=== PATIENT | male | born 1955 | race Caucasian/White ===

== ENCOUNTER 2017-02-22 12:33 | Inpatient (IN) | payer OTHER ==
[2017-02-22] MEDS ORDERED: MORPHINE SULFATE 10 MG/ML INJ IV ONE ×3 (12:46→22:43)
[2017-02-22] MEDS ORDERED: ONDANSETRON HCL INJ/PF 4 MG/2 ML SDV IV ONE ×3 (12:46→19:42)
--- NOTE | 2017-02-22 12:50 | ER Document Report ---
ED Medical Screen (RME) - General Chief Complaint: Abdominal Pain Stated Complaint: ABDOMINAL PAIN Mode of Arrival: Ambulatory Information source: Patient Notes: Patient presents emergency department with severe abdominal pain. Reports it woke him up at 3:00. Reports episode of diarrhea but still having pain. Abdomen is tight. Patient reports he has not voided. Half cup of coffee at 0730. Patient almost passed out in pivot. I have greeted and performed a rapid initial assessment of this patient. A comprehensive ED assessment and evaluation of the patient, analysis of test results and completion of the medical decision making process will be conducted by additional ED providers. TRAVEL OUTSIDE OF THE [place] IN LAST 30 DAYS: No - Related Data Allergies/Adverse Reactions: No Known Allergies Allergy (Verified 02/22/17 12:46) Past Medical History - Social History Chew tobacco use (# tins/day): No Frequency of alcohol use: Occasional Drug Abuse: None - Past Medical History Cardiac Medical History: Reports: Hx Coronary Artery Disease, Hx Heart Attack - 2009, Hx Hypercholesterolemia, Hx Hypertension Pulmonary Medical History: Denies: Hx Tuberculosis Renal/ Medical History: Denies: Hx Peritoneal Dialysis GI Medical History: Reports: Hx Gastroesophageal Reflux Disease Past Surgical History: Reports: Hx Cardiac Catheterization - 2009, Hx Coronary Stent. Denies: Hx Pacemaker - Immunizations Hx Diphtheria, Pertussis, Tetanus Vaccination: No Physical Exam - Vital signs Vitals: Temp Pulse Resp BP Pulse Ox 97.4 F 58 L 24 H 154/64 H 98 02/22/17 12:43 02/22/17 12:43 02/22/17 12:43 02/22/17 12:43 02/22/17 12:43 Course - Vital Signs Vital signs: Temp Pulse Resp BP Pulse Ox 97.4 F 58 L 24 H 154/64 H 98 02/22/17 12:43 02/22/17 12:43 02/22/17 12:43 02/22/17 12:43 02/22/17 12:43
[2017-02-22 13:13] LABS: ABSOLUTE BASOPHILS # (AUTO) 0.1 10^3/uL (0.0-0.2); ABSOLUTE EOSINOPHILS # (AUTO) 0.2 10^3/uL (0.0-0.6); ABSOLUTE MONOCYTES (AUTO) 0.9 10^3/uL (0.1-1.4); ABSOLUTE NEUT (AUTO) 9.8 10^3/uL (1.7-8.2); BASOPHILS % (AUTO) 0.8 % (0-2); EOSINOPHILS % (AUTO) 1.2 % (0-6); HEMATOCRIT 50.8 % (37.9-51.0); HEMOGLOBIN 16.8 g/dL (13.5-17.0); HGB HCT DIFFERENCE -0.4; LYMPHOCYTES % (AUTO) 15.6 % (13-45); MEAN CORPUSCULAR HEMOGLOBIN 28.4 pg (27.0-33.4); MEAN CORPUSCULAR VOLUME 86 fl (80-97); MONOCYTES % (AUTO) 6.8 % (3-13); RED BLOOD COUNT 5.92 10^6/uL (4.35-5.55); RED CELL DISTRIBUTION WIDTH 13.6 % (11.5-14.0); SEGMENTED NEUTROPHILS % (AUTO) 75.6 % (42-78)
[2017-02-22] MEDS ORDERED: NORMAL SALINE 1000 ML 1,000 ML IV ONE ×2 (13:22→14:27)
--- NOTE | 2017-02-22 13:22 | ER Document Report ---
ED GI/ - General Mode of Arrival: Ambulatory Information source: Patient TRAVEL OUTSIDE OF THE [place] IN LAST 30 DAYS: No - HPI Patient complains to provider of: Abdominal pain Onset: Other - 0300 Similar symptoms previously: Yes <SAULO GUERRERO - Last Filed: 02/22/17 13:55> <CARLA NUNEZ - Last Filed: 02/23/17 01:03> <MECHE COPE - Last Filed: 02/23/17 14:13> - General Chief Complaint: Abdominal Pain Stated Complaint: ABDOMINAL PAIN Notes: Patient is a 61 year old male that presents to the emergency department today with complaints of lower abdominal pain which began at 0300. Patient states he has these symptoms somewhat frequently and they usually subside after diarrhea or passing gas however he had an episode of diarrhea after the pain began and it did not change his pain. Patient denies any vomiting. (SAULO GUERRERO) - Related Data Allergies/Adverse Reactions: No Known Allergies Allergy (Verified 02/22/17 12:46) Home Medications: Current Home Medications Aspirin [Lo-Dose Aspirin EC] 81 mg PO QHS 02/22/17 [History] Tamsulosin HCl [Flomax 0.4 mg Cap.sr] 0.4 mg PO QHS 02/22/17 [History] Ticagrelor [Brilinta 90 mg Tablet] 90 mg PO BID 02/22/17 [History] Zolpidem Tartrate [Ambien 5 mg Tablet] 5 mg PO HSP PRN 02/22/17 [History] Past Medical History - General Information source: Patient - Social History Smoking Status: Never Smoker Cigarette use (# per day): No Chew tobacco use (# tins/day): No Frequency of alcohol use: Occasional Drug Abuse: None Lives with: Family Family History: None Patient has suicidal ideation: No Patient has homicidal ideation: No - Past Medical History Cardiac Medical History: Reports: Hx Coronary Artery Disease, Hx Heart Attack - 2009, Hx Hypercholesterolemia, Hx Hypertension GI Medical History: Reports: Hx Gastroesophageal Reflux Disease Past Surgical History: Reports: Hx Cardiac Catheterization - 2009, Hx Coronary Stent - Immunizations Hx Diphtheria, Pertussis, Tetanus Vaccination: No <SAULO GUERRERO - Last Filed: 02/22/17 13:55> Review of Systems - Review of Systems Constitutional: No symptoms reported EENT: No symptoms reported Cardiovascular: No symptoms reported Respiratory: No symptoms reported Gastrointestinal: See HPI, Abdominal pain, Diarrhea, Nausea. denies: Vomiting Genitourinary: No symptoms reported Male Genitourinary: No symptoms reported Musculoskeletal: No symptoms reported Skin: No symptoms reported Hematologic/Lymphatic: No symptoms reported Neurological/Psychological: No symptoms reported -: Yes All other systems reviewed and negative <SAULO GUERRERO - Last Filed: 02/22/17 13:55> Physical Exam - General General appearance: Alert, Other - Appears uncomfortable - HEENT Head: Normocephalic, Atraumatic Eyes: Normal Conjunctiva: Normal Extraocular movements intact: Yes Pupils: PERRL - Respiratory Respiratory status: No respiratory distress Chest status: Nontender Breath sounds: Normal - Cardiovascular Rhythm: Regular Heart sounds: Normal auscultation Murmur: No - Abdominal Distension: Distended Bowel sounds: Hypoactive - Extremities General upper extremity: Normal inspection, Normal ROM. No: Edema General lower extremity: Normal inspection, Normal ROM. No: Edema - Neurological Neuro grossly intact: Yes Cognition: Normal Orientation: AAOx4 Speech: Normal - Psychological Associated symptoms: Normal affect, Normal mood - Skin Skin Temperature: Warm Skin Moisture: Dry Skin Color: Normal <SAULO GUERRERO - Last Filed: 02/22/17 13:55> Course - Laboratory Result Diagrams: 02/22/17 12:55 02/22/17 12:55 <SAULO GUERRERO - Last Filed: 02/22/17 13:55> - Laboratory Result Diagrams: 02/22/17 12:55 02/22/17 12:55 <CARLA NUNEZ - Last Filed: 02/23/17 01:03> - Laboratory Result Diagrams: 02/23/17 03:54 02/23/17 03:54 - Diagnostic Test Radiology reviewed: Image reviewed, Reports reviewed - Acute abdominal series shows the stomach full of fluid and multiple air-fluid levels suggesting small bowel obstruction. - Transfer of Care Care transferred to following provider: Dr. Patten <MECHE COPE - Last Filed: 02/23/17 14:13> - Re-evaluation Re-evalutation: 02/22/17 20:23 An NG tube was placed and 1 L of gastric fluid was removed prior to instilling the contrast for the CT scan. (MECHE COPE) - Vital Signs Vital signs: Temp Pulse Resp BP Pulse Ox 97.4 F 58 L 19 105/73 93 02/22/17 12:43 02/22/17 12:43 02/23/17 12:01 02/23/17 12:01 02/23/17 12:01 - Laboratory Laboratory results interpreted by me: 02/22/17 02/22/17 02/22/17 12:55 12:55 12:55 WBC 13.0 H RBC 5.92 H Absolute Neutrophils 9.8 H Sodium 146.5 H Glucose 145 H Lactic Acid 2.2 H Calcium 10.4 H Total Bilirubin 1.6 H Albumin 5.1 H Urine Protein Urine Ketones Urine Urobilinogen 02/22/17 12:55 WBC RBC Absolute Neutrophils Sodium Glucose Lactic Acid Calcium Total Bilirubin Albumin Urine Protein 30 H Urine Ketones 20 H Urine Urobilinogen 4.0 H - Transfer of Care Notes: 02/22/17 20:37 The patient is pending double contrasted CT scan of abdomen and pelvis (MECHE COPE) Discharge <SAULO GUERRERO - Last Filed: 02/22/17 13:55> - Discharge Admitting Provider: Surgicalist Unit Admitted: Surgical Floor <CARLA NUNEZ - Last Filed: 02/23/17 01:03> <MECHE COPE - Last Filed: 02/23/17 14:13> - Discharge Clinical Impression: Small bowel obstruction Condition: Stable Disposition: ADMITTED INPATIENT Scribe Attestation: 02/22/17 20:23 I personally performed the services described in the documentation, reviewed and edited the documentation which was dictated to the scribe in my presence, and it accurately records my words and actions. (MECHE COPE) Scribe Documentation - Scribe Written by Jesus Manuel:: Jesus Manuel Lea, 02/22/2017 1354 acting as scribe for :: Odilia <SAULO GUERRERO - Last Filed: 02/22/17 13:55>
[2017-02-22 13:30] LABS: ALANINE AMINOTRANSFERASE 61 U/L (21-72); ALBUMIN 5.1 g/dL (3.5-5.0); ALKALINE PHOSPHATASE 89 U/L (38-126); ANION GAP 18 (5-19); ASPARTATE AMINO TRANSFERASE 35 U/L (17-59); BILIRUBIN,DIRECT 0.4 mg/dL (0.0-0.4); BILIRUBIN,TOTAL 1.6 mg/dL (0.2-1.3); BLOOD UREA NITROGEN 19 mg/dL (7-20); CALCIUM 10.4 mg/dL (8.4-10.2); CARBON DIOXIDE 24 mmol/L (22-30); CHLORIDE 105 mmol/L (98-107); CREATININE RESULT 0.79 mg/dL (0.52-1.25); GLUCOSE 145 mg/dL (75-110); LIPASE 32.5 U/L (23-300); POTASSIUM 4.4 mmol/L (3.6-5.0); SODIUM 146.5 mmol/L (137-145); TOTAL PROTEIN 8.1 g/dL (6.3-8.2)
[2017-02-22 13:41] LABS: APPEARANCE,URINE SLIGHTLY-CLOUDY; BILIRUBIN,URINE NEGATIVE (NEGATIVE); GLUCOSE, URINE NEGATIVE (NEGATIVE); KETONES,URINE 20 mg/dL (NEGATIVE); LEUKOCYTE ESTERASE,URINE NEGATIVE (NEGATIVE); NITRITE,URINE NEGATIVE (NEGATIVE); PROTEIN,URINE 30 mg/dL (NEGATIVE); URINE SPECIFIC GRAVITY 1.031
[2017-02-22] MEDS ORDERED: ONDANSETRON HCL INJ/PF 4 MG/2 ML SDV ONE (19:44)
--- NOTE | 2017-02-22 21:16 | ER Document Report ---
Doctor's Note Notes: 02/22/17 21:15 I received a signout on this patient at 2030, patient is pending a CT scan to rule out small bowel obstruction, he requires admission to the hospital for possible ileus if the CT scan does not show a small bowel obstruction, he has an NG tube placed, I did evaluate patient at bedside, he is denying any complaints at present time and resting comfortably with stable vital signs, will continue to monitor and disposition accordingly 02/22/17 22:05 Patient was discussed with on-call surgeon, Dr Tang, who will come to the emergency room to see patient 02/22/17 22:42 Dr. Tang will admit patient but requests that medicine and cardiology consulted to get patient cleared for surgery as he had a recently placed cardiac stent and is currently on Brilinta, consults have been ordered Course - Vital Signs Vital signs: Temp Pulse Resp BP Pulse Ox 97.4 F 58 L 17 135/88 H 94 02/22/17 12:43 02/22/17 12:43 02/23/17 00:01 02/23/17 00:00 02/23/17 00:01 - Laboratory Result Diagrams: 02/22/17 12:55 02/22/17 12:55 Laboratory results interpreted by me: 02/22/17 02/22/17 02/22/17 12:55 12:55 12:55 WBC 13.0 H RBC 5.92 H Absolute Neutrophils 9.8 H Sodium 146.5 H Glucose 145 H Lactic Acid 2.2 H Calcium 10.4 H Total Bilirubin 1.6 H Albumin 5.1 H Urine Protein Urine Ketones Urine Urobilinogen 02/22/17 12:55 WBC RBC Absolute Neutrophils Sodium Glucose Lactic Acid Calcium Total Bilirubin Albumin Urine Protein 30 H Urine Ketones 20 H Urine Urobilinogen 4.0 H - Consults Dr Traore Time consulted: 22:10 Reason for consultation: 02/22/17 22:10 SBO Consulted provider: will come to ER
[2017-02-22] MEDS ORDERED: NORMAL SALINE 1000 ML 1,000 ML IV PRN ×2 (22:43→23:14)
[2017-02-22] MEDS ORDERED: PHARMACY COMMUNICATION ORDER MC NR (23:00)
[2017-02-22] MEDS ORDERED: ONDANSETRON HCL INJ/PF 4 MG/2 ML SDV IV PRN (23:19)
[2017-02-22] MEDS ORDERED: MORPHINE SULFATE 10 MG/ML INJ IV PRN (23:21)
[2017-02-22] MEDS ORDERED: NITROGLYCERIN 0.4 MG/TAB 25 TAB/BOTTLE SL PRN (23:24)
--- NOTE | 2017-02-23 00:28 | HISTORY AND PHYSICAL E ---
History and Physical NAME: MANOJ GUILLEN : 1955 AGE: 61Y ADMITTED: 02/22/2017 ROOM: ED17 CHIEF COMPLAINT: Abdominal distention, obstipation, intense nausea. HISTORY OF PRESENT ILLNESS: This is a 61-year-old male who in 2006 underwent a laparoscopic ventral hernia repair with large mesh. The procedure was done because of the presence of multiple ventral hernias which were causing abdominal. This caused resolution of the preoperative pain. The patient has been doing well until 6 months ago when he started complaining of vague abdominal discomfort, including indigestion, burping, difficulty passing stools, abdominal distention, and discomfort. The symptoms have recently become worse, and since this morning at 6:30 the patient has not been able to pass any more stool or flatus. His abdomen has become more distended with significant discomfort due to the obstipation. His last bowel movement was early this morning at 6:30, no blood was noted, and his abdominal girth has become larger. No vomiting reported. Nasogastric tube has been inserted with a large amount of aspirate fluid obtained. The CAT scan of the abdomen and pelvis was done indicating a complete mechanical small bowel obstruction. However, a transition point could not be identified. PAST MEDICAL HISTORY: Significant for: 1. Coronary artery disease with coronary artery stent placement x2, most recent on January 07, 2017. 2. Myocardial infarction x4. 3. Ventral hernia repair laparoscopic with mesh in 2006. ALLERGIES: No known allergies. HOME MEDICATIONS: 1. Dexilant 60 mg p.o. daily. 2. Brilinta 90 mg p.o. b.i.d. 3. Metoprolol 12.5 mg p.o. b.i.d. 4. Aspirin 81 mg p.o. daily. 5. Flomax 0.4 mg p.o. daily. 6. Atorvastatin 80 mg p.o. daily. FAMILY HISTORY: Significant for diabetes. REVIEW OF SYSTEMS: A 12-point review of systems is significant for obesity, coronary artery disease, status post ventral hernia repair. REVIEW OF LABORATORIES: White blood cells 13.0, hemoglobin and hematocrit 16 and 50, platelet count of 263,000. Electrolytes show sodium 146; the remaining electrolytes, BUN, creatinine, and liver profile within normal limits except for a slightly elevated total bilirubin. Lactic acid initially was 2.2, following hydration went down to 1.2. Urinalysis negative except for a slightly elevated protein [address] scan abdomen and pelvis done with oral and IV contrast shows findings of mechanical small bowel obstruction with point of obstruction in the mid-abdomen; however, a discrete obstruction lesion is not visualized, most likely etiology due to adhesions. Presence of diverticulosis and mesh in the lower abdominal wall. PHYSICAL EXAMINATION: GENERAL: The patient is alert, oriented x3, moderate distress. VITAL SIGNS: Stable. The patient is afebrile; temperature not identified. Pulse 77. Blood pressure 135/84. Heart rate 77. Respirations 14. Saturating 93% room air. HEENT: Cranial nerves II-XII are normal. NECK: Supple with no masses. CHEST: Symmetric bilaterally. LUNGS: Clear to auscultation bilaterally. HEART: Regular rhythm/rate. ABDOMEN: Very large, tympanitic, distended without peritoneal signs, hypoactive bowel sounds, presence of a small surgical incision at the umbilicus. EXTREMITIES: Upper and lower extremities are equal and symmetric bilaterally without deficits. NEUROLOGIC SYSTEM: Equal and symmetric bilaterally without deficits. SKIN: Warm, dry, intact, without lesions. ASSESSMENT: 1. Abdominal distention, intense nausea. 2. Obstipation. 3. CT scan abdomen and pelvis significant for mechanical small bowel obstruction with transition point in the mid small bowel. 4. Status post laparoscopic ventral hernia repair with mesh in 2006 for spontaneously occurring ventral hernias. PLAN: 1. Admit the patient. 2. Keep NPO. 3. Give the patient aggressive rehydration. 4. Insert nasogastric tube. 5. Killian catheter. 6. Will follow the patient clinically for the next 1 to 2 days because of the use of Brilinta: this can cause significant intra-abdominal bleeding during and after surgery; however, if surgery has to be done, we will proceed cautiously. 7. Will consult Cardiology as well as the Hospitalist service to obtain recommendations in terms of his current condition, preoperative cardiac clearance, and recommendation for the use of pre-postoperative anticoagulation. DICTATING PHYSICIAN: EDIN ZHU M.D. [id number] PHY#: [id number] ID: [id number] JOB#: [id number] ACCT: [id number] cc:EDIN ZHU M.D. > [facility]
[2017-02-23 04:09] LABS: HEMATOCRIT 42.4 % (37.9-51.0); HGB HCT DIFFERENCE 1.1; MEAN CORPUSCULAR HEMOGLOBIN 29.6 pg (27.0-33.4); MEAN CORPUSCULAR HGB CONC 34.3 g/dL (32.0-36.0); MEAN CORPUSCULAR VOLUME 86 fl (80-97); RED BLOOD COUNT 4.91 10^6/uL (4.35-5.55); RED CELL DISTRIBUTION WIDTH 13.7 % (11.5-14.0); WHITE BLOOD COUNT 9.7 10^3/uL (4.0-10.5)
[2017-02-23 04:24] LABS: ANION GAP 10 (5-19); BLOOD UREA NITROGEN 15 mg/dL (7-20); CALCIUM 8.4 mg/dL (8.4-10.2); CARBON DIOXIDE 23 mmol/L (22-30); CHLORIDE 109 mmol/L (98-107); CREATININE RESULT 0.71 mg/dL (0.52-1.25); GLUCOSE 103 mg/dL (75-110); POTASSIUM 4.8 mmol/L (3.6-5.0); SODIUM 142.3 mmol/L (137-145)
[2017-02-23 04:25] LABS: HEMOGLOBIN 14.5 g/dL (13.5-17.0)
[2017-02-23 05:33] LABS: ADD ON TESTING BLD IN LAB ACKNOWLEDGE
[2017-02-23] MEDS ORDERED: ENOXAPARIN SODIUM INJ 40 MG/0.4 ML DISP.SYRIN SUBCUT SCH (08:00)
--- NOTE | 2017-02-23 08:04 | PDOC CONSULTATION ---
Consultation Consult Date: 02/23/17 Attending physician:: EDIN ZHU Consult reason:: medical management History of Present Illness Admission Date/PCP: 02/22/17 22:57 ANTOINETTE CLARK MD Patient complains of: abd pain, nausea, abd distention History of Present Illness: MANOJ GUILLEN is a 61 year old obese male with a strong history of coronary artery disease, hypertension, obstructive sleep apnea, easy bruising, esophageal reflux disease, hyperlipidemia, benign prostatic hypertrophy, admitted to the surgery service for small bowel obstruction. Please refer to surgeon's transcribed history and physical, which has been reviewed. Nasogastric tube has been placed, draining over 1 liter of fluid. Fortunately, he has passed small amounts of flatus over the past several hours. Currently denies abdominal pain, and states his distention is much improved. No prior intra-abdominal surgery per se. He is status post laparoscopic repair of multiple ventral hernias with a large sheet of mesh in 2006. Has suffered myocardial infarction 4, including most recent episode last month while skiing in [place]. Spent 2 days at [facility] in [place] and received his second stent. Old records have been requested. First stent implanted in 2009. Denies chest pain, fever or chills. No prior episodes of bowel obstruction. Patient has been discussed with emergency room physician who initially evaluated the patient. . Laboratory results are listed in [employer] and are reviewed. X-ray summary results are listed below, with full report(s) reviewed. . Social history/personal habits: . Adult children. 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 No tobacco or illicit drugs. Social alcohol use. Allergies/adverse reactions NKDA. Home medications Home medications initially autopopulated into [employer] may not accurately reflect patient's true medications, dosages, and/or frequencies. REVIEW OF SYSTEMS: Constitutional: No fever or chills. Eyes: Wears glasses. ENT: No swallowing problems or complaints. No hearing problems or complaints. Pulmonary: No current complaints. Cardiovascular: No current complaints, including chest pain. Gastrointestinal: See history and present illness. Skin: No current complaints, including rashes. Hematologic: Easy bruising. Neurologic: No current complaints, including numbness or tingling. Musculoskeletal: No current complaints, including painful joints. Psychiatric: No current complaints, including anxiety or depression. Endocrine: No current complaints, including polyuria. Genitourinary: No current complaints, including dysuria. PHYSICAL EXAMINATION: 5 feet 7 inches tall. 104.5 kg. BMI 36.1 kg/m. Respirations are 13 and unlabored. Blood pressure 133/89. Pulse 70 and regular. 96% saturation on room air. Temperature 97.4. Obese otherwise well-developed male appearing a number of views younger than his stated age. Pleasant awake alert and cooperative. Appears somewhat fatigued. Mildly anxious, without agitation. Nasogastric tube has actually come out, and is set to be replaced by the nursing staff shortly. Skin is warm and dry. No grossly obvious evidence of rash in areas of skin examined. No subcutaneous nodules palpated. ENT: Hearing grossly normal to normal conversation. Tongue midline on protrusion pink and slightly tacky. Eyes: No scleral icterus. Pupils equal and reactive to light at 4 mm. [place] conjunctivae. Neck is supple and nontender to gentle active range of motion and palpation. Midline trachea. No palpable thyroid nodule mass enlargement or tenderness. Lymphatic: No palpable cervical or clavicular nodes. Neck and lymphatic exams limited by patient body habitus. Psychiatric: Reasonable insight into acute and chronic medical issues. Oriented to time location and why here. Lungs: Auscultation reveals clear and equal breath sounds bilaterally. No use of accessory respiratory muscles. Cardiovascular: Heart regular rate and rhythm, without gallop murmur or rub. No carotid or abdominal aortic bruits. No ankle or pedal edema. Faintly palpable dorsalis pedis pulses. Abdomen: soft, obese, somewhat distended nontender with positive bowel sounds. Unable to adequately evaluate abdomen for masses or organomegaly due to body habitus and distention. Extremities: Feet are warm and dry. No calf tenderness to compression. No grossly obvious visual evidence of calf swelling. Gentle manipulation of lower extremities fails to reveal any obvious evidence of injury or instability to knees hips or ankles. Neurologic: Moves upper extremities grossly normally. Patellar reflexes absent. Absent Babinski. Light touch is intact at feet. Dorsiflexion and plantarflexion of feet 5 / 5 and symmetric. Past Medical History Cardiac Medical History: Reports: Coronary Artery Disease, Myocardial Infarction - 4; last episode December 2016., Hyperlipidema, Hypertension, Other Denies: DVT, Pulmonary Embolism Pulmonary Medical History: Reports: Sleep Apnea Denies: Asthma, Chronic Obstructive Pulmonary Disease (COPD), Tuberculosis EENT Medical History: Reports: Eyes - Glasses Denies: Ears, Throat Neurological Medical History: Denies: Hemorrhagic CVA, Ischemic CVA, Seizures Endocrine Medical History: Reports: Obesity Denies: Diabetes Mellitus Type 1, Diabetes Mellitus Type 2, Hyperthyroidism, Hypothyroidism Renal/ Medical History: Reports: Other - Prostatic hypertrophy GI Medical History: Reports: Gastroesophageal Reflux Disease Denies: Cirrhosis, Hepatitis, Peptic Ulcer Disease Musculoskeltal Medical History: Reports: None Skin Medical History: Reports: None Psychiatric Medical History: Denies: Alcohol Dependency, Depression, General Anxiety Disorder, Substance Abuse, Tobacco Dependency Hematology: Reports: Other - Easy bruising Infectious Medical History: Denies: Hepatitis B, Hepatitis C Past Surgical History Past Surgical History: Reports: Cardiac Catheterization - 2009, Coronary Stent - 2; 2009 and 2016., Herniorrhaphy - Ventral hernia repair with large sheet of mesh, 2006. Denies: Pacemaker Social History Information Source: Patient, Emergency Med Personnel, [facility] Records Lives with: Spouse/Significant other Smoking Status: Never Smoker Frequency of Alcohol Use: Social Hx Recreational Drug Use: No Drugs: None Hx Prescription Drug Abuse: No - Advance Directive Resuscitation Status: Full Code Surrogate healthcare decision maker:: Family History Family History: None Parental Family History Reviewed: Yes Children Family History Reviewed: Yes Sibling(s) Family History Reviewed.: Yes Medication/Allergy Home Medications: Metoprolol Tartrate 12.5 mg PO BID 09/03/12 Nitroglycerin [Nitrolingual 0.4 mg/dose [place]] 1 spray SL PRN PRN 09/03/12 Dexlansoprazole [Dexilant 60 mg Capsule] 60 mg PO DAILY 12/30/14 Atorvastatin Calcium [Lipitor] 80 mg PO QHS 12/31/14 Aspirin [Lo-Dose Aspirin EC] 81 mg PO QHS 02/22/17 Tamsulosin HCl [Flomax 0.4 mg Cap.sr] 0.4 mg PO QHS 02/22/17 Ticagrelor [Brilinta 90 mg Tablet] 90 mg PO BID 02/22/17 Zolpidem Tartrate [Ambien 5 mg Tablet] 5 mg PO HSP PRN 02/22/17 Allergies/Adverse Reactions: No Known Allergies Allergy (Verified 02/22/17 12:46) Physical Exam Vital Signs: Temp Pulse Resp BP Pulse Ox 97.4 F 58 L 16 124/78 95 02/22/17 12:43 02/22/17 12:43 02/23/17 04:01 02/23/17 04:01 02/23/17 04:01 Intake & Output 02/22/17 02/23/17 02/24/17 00:59 00:59 00:59 Output Total 250 Balance -250 Results Laboratory Results: 02/23/17 03:54 02/23/17 03:54 02/23/17 02/23/17 02/23/17 03:54 03:54 03:54 WBC 9.7 RBC 4.91 Hgb 14.5 D Hct 42.4 MCV 86 MCH 29.6 MCHC 34.3 RDW 13.7 Plt Count 177 Sodium 142.3 Potassium 4.8 Chloride 109 H Carbon Dioxide 23 Anion Gap 10 BUN 15 Creatinine 0.71 Est GFR ( Amer) > 60 Est GFR (Non-Af Amer) > 60 Glucose 103 Calcium 8.4 Magnesium 2.0 Impressions: Abdomen/Pelvis CT 02/22/17 16:09 IMPRESSION: 1. FINDINGS OF MECHANICAL SMALL BOWEL OBSTRUCTION. POINT OF OBSTRUCTION ROUGHLY THE MID SMALL BOWEL. A DISCRETE OBSTRUCTING LESION IS NOT VISUALIZED. ETIOLOGY MAY BE DUE TO ADHESIONS. 2. SURGICAL CHANGES WITH MESH IN THE LOWER ABDOMINAL WALL. 3. COLONIC DIVERTICULOSIS. NO CT EVIDENCE OF DIVERTICULITIS. 4. FATTY INFILTRATION OF THE LIVER. 5. NO OTHER SIGNIFICANT FINDING. Assessment & Plan - Diagnosis (1) HTN (hypertension) Qualifiers: Hypertension type: essential hypertension Qualified Code(s): I10 - Essential (primary) hypertension Is this a current diagnosis for this admission?: YesPlan: Resume home medications as appropriate once these have been determined and reviewed. (2) BPH (benign prostatic hyperplasia) Qualifiers: Prostatic enlargement morphology: unspecified morphology Lower urinary tract symptom presence: presence of symptoms unspecified Qualified Code(s ): N40.0 - Benign prostatic hyperplasia without lower urinary tract symptoms Is this a current diagnosis for this admission?: YesPlan: Resume home medications as appropriate once these have been determined and reviewed. (3) CARL (obstructive sleep apnea) Is this a current diagnosis for this admission?: YesPlan: CPAP. (4) HLD (hyperlipidemia) Qualifiers: Hyperlipidemia type: unspecified Qualified Code(s): E78.5 - Hyperlipidemia, unspecified Is this a current diagnosis for this admission?: YesPlan: Resume home medications as appropriate once these have been determined and reviewed. (5) History of OR (myocardial infarction) Is this a current diagnosis for this admission?: YesPlan: Cardiology consult. (6) Stented coronary artery Is this a current diagnosis for this admission?: Yes (7) Small bowel obstruction Is this a current diagnosis for this admission?: YesPlan: Surgical management.
[2017-02-23] MEDS ORDERED: METOPROLOL TARTRATE 25 MG TABLET PO SCH (10:00)
[2017-02-23] MEDS ORDERED: TICAGRELOR 90 MG TABLET PO SCH (10:00)
[2017-02-23] MEDS ORDERED: FAMOTIDINE INJ/PF 20 MG/2 ML SDV IV SCH (10:00)
--- NOTE | 2017-02-23 15:35 | DISCHARGE SUMMARY E ---
Discharge Summary NAME: MANOJ GUILLEN : 1955 AGE: 61Y ADMITTED: 02/22/2017 DISCHARGED: 02/23/2017 FINAL DIAGNOSES: 1. Dyspepsia. 2. Constipation. PROCEDURES: None. COMPLICATION: None. HOSPITAL COURSE: This is a 61-year-old male who was admitted on February 22, 2017 with a history of abdominal discomfort, increased abdominal girth, nausea, and obstipation. CT scan of abdomen and pelvis was done with IV and oral contrast revealing a possible small bowel obstruction, however, a followup x-ray of the abdomen done the following day revealed that the contrast passed throughout the colon without evidence of obstruction. At this point, his nasogastric tube was removed and patient's diet was advanced to full liquid diet. He was discharged to home in satisfactory condition on February 23. On the day of discharge the patient had no complaints, he was tolerating his full liquid diet well, and his blood work was within normal limits. He was discharged to home and was given a followup appointment in 2 weeks. OBJECTIVE: His physical exam was unremarkable with abdomen soft, obese, but nontender. DIAGNOSTICS: His blood work was unremarkable except an x-ray of the abdomen revealed the presence of contrast through the colon. DISPOSITION: The patient was started back on his home medications and discharged home on February 23. He will schedule a followup appointment to the [facility] in 1-2 weeks. He was encouraged to followup with medical doctor in 1-2 weeks. He was instructed to undergo a colonoscopy if it has been more than 3 years since last colonoscopy. The patient was also given instruction to follow bowel hygiene regimen consisting of MiraLax, exercise, and high fiber diet. DICTATING PHYSICIAN: EDIN ZHU M.D. [id number] PHY#: [id number] ID: [id number] JOB#: [id number] ACCT: [id number] cc:EDIN ZHU M.D., MARSHALL B. M.D. >
--- NOTE | 2017-02-23 16:05 | EKG REPORT ---
SEVERITY:- ABNORMAL ECG - SINUS RHYTHM ABNORMAL T, CONSIDER ISCHEMIA, LATERAL LEADS : Confirmed by: Lennox Salomon 23-Feb-2017 16:04:03
[2017-02-23 16:14] VITALS: BP 104/68
--- NOTE | 2017-02-23 21:51 | PDOC PROGRESS REPORT ---
Subjective Progress Note for:: 02/23/17 Subjective:: Note patient seen and examined this is a brief note. Not a formal consultation since the patient's being discharged. The patient is a obese male with a history of coronary artery disease and history for ID as history of stent in 2009, with recurrence of an ID in December 2016, when he was skiing in [place]. He then was found to have restenosis of his prior stent placed in 2009 and had repeat stenting of this vessel with a drug-eluting stent. The patient, the patient's do not know the location of the skin stent. On looking at his stent implant card there is no no indication as to whether stent was placed. The patient has no anginal symptoms. He states he states he has no congestive heart failure there is no PND or orthopnea or leg edema. As her blood pressure is well-controlled April has hyperlipidemia. His sodium. As the symptoms of abdominal bloating and belching initially constipation subsequently the area mentioned going on for several months even prior to him having the stent placement in [place] the he's been having GI workup for this which is being Scheduled. At present his NG tube was clamped and the symptoms have subsided. And there is a plan to discharge the patient and not do any surgery. His physical examination unremarkable. His EKG shows stable lateral T inversions possibly ischemia. No prior EKGs available. Impression CAD with stable cardiac status. Recently placed drug-eluting stent in December 2016 recommend the patient continues blunt and aspirin as prescribed he has been advised to follow-up with his wet end helper Dr. Blake Velez of [facility] in [facility]. Agree that he can be discharged. But if the patient should be readmitted and have surgery he should be transferred to tertiary care center such as [facility] for any surgical intervention since the it is a tertiary care center and has revascularization potential, if needed. Discussed this with the hospitalist taking care of the patient and also with the surgical rest. Note that the GI workup is negative and there was no obstruction of the bowel. Next Thank you. In view of this being just a small note, since the patient being discharged. I will not charge the patient thank you. Physical Exam Vital Signs: Temp Pulse Resp BP Pulse Ox 97.4 F 58 L 17 104/68 93 02/22/17 12:43 02/22/17 12:43 02/23/17 16:01 02/23/17 16:01 02/23/17 16:01 Intake & Output 02/22/17 02/23/17 02/24/17 06:59 06:59 06:59 Output Total 250 250 Balance -250 -250 Results Laboratory Results: 02/23/17 03:54 02/23/17 03:54 02/23/17 02/23/17 02/23/17 03:54 03:54 03:54 WBC 9.7 RBC 4.91 Hgb 14.5 D Hct 42.4 MCV 86 MCH 29.6 MCHC 34.3 RDW 13.7 Plt Count 177 Sodium 142.3 Potassium 4.8 Chloride 109 H Carbon Dioxide 23 Anion Gap 10 BUN 15 Creatinine 0.71 Est GFR ( Amer) > 60 Est GFR (Non-Af Amer) > 60 Glucose 103 Calcium 8.4 Magnesium 2.0 Impressions: Abdomen/Pelvis CT 02/22/17 16:09 IMPRESSION: 1. FINDINGS OF MECHANICAL SMALL BOWEL OBSTRUCTION. POINT OF OBSTRUCTION ROUGHLY THE MID SMALL BOWEL. A DISCRETE OBSTRUCTING LESION IS NOT VISUALIZED. ETIOLOGY MAY BE DUE TO ADHESIONS. 2. SURGICAL CHANGES WITH MESH IN THE LOWER ABDOMINAL WALL. 3. COLONIC DIVERTICULOSIS. NO CT EVIDENCE OF DIVERTICULITIS. 4. FATTY INFILTRATION OF THE LIVER. 5. NO OTHER SIGNIFICANT FINDING. Acute Abdomen Series 02/23/17 08:00 IMPRESSION: 1. Contrast has passed through the small bowel into the colon. This was suggest at most partial small bowel obstruction. 2. Left retrocardiac airspace disease consistent with atelectasis.
[2017-02-23] MEDS ORDERED: ATORVASTATIN CALCIUM 80 MG TABLET PO SCH (22:00)
[2017-02-23] MEDS ORDERED: ASPIRIN 81 MG TABLET, ENT COATED PO SCH (22:00)
[2017-02-23] MEDS ORDERED: TAMSULOSIN HCL 0.4 MG CAP.SR.24H PO SCH (22:00)
[2017-02-24] MEDS ORDERED: LANSOPRAZOLE 30 MG TAB.RAP.DR PO SCH (06:00)
== END 2017-02-23 15:34 | disposition home or self-care (01) | DRG 392 ==
LOC: ER 12:33 → EH 22:56 → UNDOADMIN 22:56 → EH 22:57
PROVIDERS: ADMIT Surgery; ATTEND Surgery
DX: K59.00 Constipation, unspecified (principal); K56.5 Intestinal adhesions [bands] with obstruction (postinfection); I25.10 Atherosclerotic heart disease of native coronary artery without angina pectoris; I10 Essential (primary) hypertension; N40.0 Benign prostatic hyperplasia without lower urinary tract symptoms; G47.33 Obstructive sleep apnea (adult) (pediatric); E78.5 Hyperlipidemia, unspecified; R10.13 Epigastric pain; R14.0 Abdominal distension (gaseous); I25.2 Old myocardial infarction; Z95.5 Presence of coronary angioplasty implant and graft
CPT/HCPCS: 36415; 74022; 74177; 80048; 80053; 81001; 83605; 83690; 83735; 85025; 85027; 93005; 93010; 96361; 96374; 96375; 96376; 99285; J1650; J2270; J2405; J3490; J7030; S0028